=== PATIENT | female | born 1970 | race African-American/Black ===

== ENCOUNTER 2017-09-08 16:21 | Emergency (ER) | payer OTHER ==
[~2017-09-08] VITALS: Ht 167.6 cm; Wt 81.6 kg
[2017-09-08] MEDS ORDERED: LEVE500T9 PO (16:28)
--- NOTE | 2017-09-08 16:29 | NUR ---
Pt is awake A/O x4, appropiate verbal response.
[2017-09-08] MEDS ORDERED: LEVETIRACETAM 250 MG TABLET PO ONE (16:30)
[2017-09-08] MEDS ORDERED: LEVETIRACETAM 250 MG TABLET ONE (16:49)
--- NOTE | 2017-09-08 17:02 | NUR ---
IV removed. Catheter intact and site benign. Pressure and 4x4 gauze applied to site. No bleeding noted.
[2017-09-08 17:03] VITALS: BP 133/90
--- NOTE | 2017-09-08 17:06 | NUR ---
Patient discharged to home in stable conditon. Written and verbal after care instructions given. Patient verbalizes understanding of instructions. Pt left ER w/ steady gait.
== END 2017-09-08 17:06 | disposition home or self-care (01) ==
LOC: ER 16:22
DX: G40.909 Epilepsy, unspecified, not intractable, without status epilepticus (principal)
CPT/HCPCS: 99283; A4663